=== PATIENT | female | born 2005 | race Caucasian/White ===

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

== ENCOUNTER 2024-01-01 10:54 | Outpatient (CLI) | payer OTHER, SELFPAY ==
[2024-01-01 18:58] LABS: Iron 107 ug/dL (37-170)
[2024-01-01 19:07] LABS: Percent Iron Saturation 31 % (20-50)
[2024-01-01 19:08] LABS: Phosphorus 3.7 mg/dL (2.5-4.5)
[2024-01-01 21:26] LABS: Folic Acid > 20.0 ng/mL (2.76->20)
[2024-01-03 12:24] LABS: Zinc 69 mcg/dL (60-130)
== END 2024-01-01 10:55 | disposition home or self-care (01) ==
LOC: ANHBWCLAB 10:55
PROVIDERS: PCP Nurse Practitioner Adult Health; Visit Provider Nurse Practitioner Adult Health
DX: R74.8 Abnormal levels of other serum enzymes (principal); R00.2 Palpitations
CPT/HCPCS: 36415; 82607; 82728; 82746; 83540; 83550; 84100; 84630

== ENCOUNTER 2025-06-03 13:33 | Outpatient (CLI) | payer OTHER, SELFPAY ==
--- OUTSIDE RECORDS SUMMARY | 2025-06-03 13:37 | XMS_ITS | Clinical Summary ---
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 Phone Unavailable Primary Care Provider Unavailabl e Medications No known medications Active Problems No known active problems Social History Tobacco Use Types Packs/Day Years Used Date Smoking Tobacco: Never Smokeless Tobacco: Never Alcohol Use Standard Drinks/Week Comments Never 0 (1 standard drink = 0.6 oz pur e alcohol) Comments Unknown Sex and Gender Information Value Date Recorded Sex Assigned at Not on file Legal Sex Female 8:56 AM PST Gender Identity Not on file Sexual Orientation Not on file Plan of Treatment Health Maintenance Due Date Last Done Comments Dental Oral Exam 2004 Dental Prophylaxis 2004 Dental X-Ray: Bitewings 2004 Dental X-Ray: Full Mouth 2004 Dental X-Ray: Panoramic 04/29/2025 04/28/2022 Procedures Procedure Name Priority Date/Time Associated Diagnosis Comments PANORAMIC RADIOGRAPHIC IMAGE Routine 04/28/2022 9:30 AM 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
--- OUTSIDE RECORDS SUMMARY | 2025-06-03 13:37 | XMS_ITS | Encounter Summary ---
Author Organization [facility] Health Address [address] [place] [address] Care Team Providers Care Web Production Assistant Name Role Phone Unavailable Primary Care Provider Unavailabl e Prior Encounters Date Type Department Care Team Description 04/28/2022 9:30 AM COP Office Visit [facility] [address] [place] [address] Ana Mendez DDS Plan of Treatment Not on file Procedures Procedure Name Priority Date/Time Associated Diagnosis Comments PANORAMIC RADIOGRAPHIC IMAGE Routine 04/28/2022 9:30 AM COP BITEWING - SINGLE RADIOGRAPHIC IMAGE Routine 04/28/2022 9:30 AM COP ADDITIONAL X-RAY Routine 04/28/2022 9:30 AM COP LIMITED ORAL EVALUATION - PROBLEM FOCUSED Routine 04/28/2022 9:30 AM COP SINGLE X-RAY Routine 04/28/2022 9:30 AM COP 14 ROOT CANAL Routine 04/28/2022 12:00 AM COP Visit Diagnoses Not on file Insurance [employer]AL
--- OUTSIDE RECORDS SUMMARY | 2025-06-03 13:37 | XMS_ITS | Clinical Summary ---
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 Gender Identity Not on file Sexual Orientation Not on file Plan of Treatment Health Maintenance Due Date Last Done Comments Hepatitis C Virus (HCV) Screening 2004 TdaP Immunization 2004 Human Papillomavirus (HPV) Immunization (1 - 3-dose series) 02/09/2019 Meningococcal B Immunization (1 of 2 - Standard) 2020 Hepatitis B Immunization (1 of 3 - 19+ 3-dose series) 02/09/2023 Influenza Immunization (#1) 2025 SARS-COV-2 Immunization ( - season) 2025 Respiratory Syncytial Virus (RSV) Immunization (Adult) (1 - 1-dose 75+ series) 02/09/2079 Meningococcal Immunization (ACWY) Aged Out No longer eligible based on patient's age to complete this topic Pneumococcal Immunization Combined Aged Out No longer eligible based on patient's age to complete this topic Rotavirus Immunization Aged Out No lo nger eligible based on patient's age to complete this topic
[2025-06-03 18:47] LABS: Alanine Aminotransferase 10 U/L (6-35); Albumin Level 4.8 g/dL (3.5-5.1); Alkaline Phosphatase 38 U/L (38-126); Anion Gap 10 mmol/L (4-12); Aspartate Amino Transferase 84 U/L (14-36); Bilirubin,Total 1.0 mg/dL (0.2-1.3); Blood Urea Nitrogen 5 mg/dL (7-17); Calcium 9.9 mg/dL (8.4-10.2); Carbon Dioxide 25 mmol/L (22-30); Chloride 106 mmol/L (98-107); Estimated Glomerular Filt Rate > 60; Glucose 79 mg/dL (65-110); Potassium 4.9 mmol/L (3.4-5.0); Sodium 141 mmol/L (137-145); Total Protein 8.1 g/dL (6.3-8.2)
[2025-06-03 19:08] LABS: Hemoglobin A1C 4.6 % (<5.7)
[2025-06-03 19:41] LABS: Vitamin B12 376.0 pg/mL (239-931)
== END 2025-06-03 13:34 | disposition home or self-care (01) ==
PROVIDERS: PCP Nurse Practitioner Adult Health; Visit Provider Nurse Practitioner Adult Health
DX: E16.2 Hypoglycemia, unspecified (principal); E53.8 Deficiency of other specified B group vitamins
CPT/HCPCS: 36415; 80053; 82607; 83036